=== PATIENT | male | born 1990 | race African-American/Black ===

== ENCOUNTER 2018-04-04 11:05 | Emergency (ER) | payer OTHER ==
[2018-04-04 11:11] VITALS: Ht 175.3 cm
[2018-04-04 13:58] VITALS: BP 132/74
== END 2018-04-04 13:58 | disposition home or self-care (01) ==
LOC: ED 11:05
DX: J06.9 Acute upper respiratory infection, unspecified (principal); J45.909 Unspecified asthma, uncomplicated
CPT/HCPCS: J7613; J7644

== ENCOUNTER 2018-10-10 19:35 | Emergency (ER) | payer OTHER ==
[~2018-10-10] VITALS: Ht 175.3 cm; Wt 74.8 kg
[2018-10-10 20:21] VITALS: Ht 175.3 cm; Wt 74.8 kg
[2018-10-10 22:18] LABS: microscopic required? NO
[2018-10-10 22:23] LABS: urine erythrocyte NEGATIVE (NEGATIVE)
[2018-10-10 22:30] LABS: BASOPHIL % 0 % (0-2); PLATELET COUNT 220 x10^3mcL (130-400); RED CELL DISTRIBUTION WIDTH 12.6 % (11.5-14.5)
[2018-10-10 22:45] LABS: CALCIUM 8.3 mg/dL (8.5-10.1); CARBON DIOXIDE 28.3 mmol/L (21-32); CHLORIDE SERUM 102 mmol/L (98-107); CREATININE SERUM 0.7 mg/dL (0.7-1.3); GFR1 > 60 mL/min; GLUCOSE SERUM 106 mg/dL (74-106); POTASSIUM SERUM 3.5 mmol/L (3.5-5.1); SODIUM SERUM 138 mmol/L (136-145)
[2018-10-10 22:50] LABS: ALKALINE PHOSPHATASE 69 U/L (46-116); ALT/SGPT 28 U/L (16-63); AST/SGOT 20 U/L (15-37); BILIRUBIN TOTAL 1.62 mg/dL (0.20-1.00); LIPASE 99 IU/L (73-393); TOTAL PROTEIN, SERUM 7.1 g/dL (6.4-8.2)
[2018-10-10 23:45] VITALS: BP 146/88
== END 2018-10-11 00:50 | disposition home or self-care (01) ==
LOC: ED 19:35
PROVIDERS: Emergency Medicine
DX: R10.84 Generalized abdominal pain (principal); R63.0 Anorexia; R50.9 Fever, unspecified; J45.909 Unspecified asthma, uncomplicated; F90.9 Attention-deficit hyperactivity disorder, unspecified type; F84.0 Autistic disorder
CPT/HCPCS: 36415

== ENCOUNTER 2019-06-25 14:54 | Emergency (ER) | payer OTHER ==
[~2019-06-25] VITALS: Ht 175.3 cm; Wt 71.2 kg
[2019-06-25 14:58] VITALS: Ht 175.3 cm; Wt 71.2 kg
[2019-06-25 16:03] VITALS: BP 135/73
== END 2019-06-25 16:03 | disposition home or self-care (01) ==
LOC: ED 14:54
DX: J06.9 Acute upper respiratory infection, unspecified (principal); J45.909 Unspecified asthma, uncomplicated